=== PATIENT | female | born 1990 | race Caucasian/White ===

== ENCOUNTER → 2021-03-29 15:42 | Observation (INO) ==
[2021-03-29 11:34] LABS: Protein/Creatinine Ratio,Urine 0.11 mg/mg (0.00-0.20)
[2021-03-29 11:45] LABS: Alanine Aminotransferase 22 Units/L (7-52); Aspartate Amino Transferase 16 Units/L (13-39); BUN/Creatinine Ratio 15 (6-26); Blood Urea Nitrogen 9 mg/dL (6-20); Lactate Dehydrogenase 123 Units/L (140-271); Uric Acid 5.6 mg/dL (2.3-7.6); eGFR For African Americans > 60 (> 60); eGFR For Non-African Americans > 60 (> 60)
== END | disposition home or self-care (01) ==
LOC: 1NENULAB
PROVIDERS: ADMIT Registered Nurse; ATTEND Registered Nurse

== ENCOUNTER 2021-05-03 06:46 | Inpatient (IN) ==
[2021-05-03] MEDS ORDERED: miSOPROStoL 25 MCG TABLET PO PRN (06:48)
[2021-05-03] MEDS ORDERED: *HR* Nalbuphine 10 MG/ML AMPUL IV PRN (06:49)
[2021-05-03] MEDS ORDERED: Ondansetron 4 MG/2 ML VIAL IVP PRN (06:49)
[2021-05-03] MEDS ORDERED: Lidocaine 1% 20 ML MDV INFILT PRN (06:49)
[2021-05-03] MEDS ORDERED: Famotidine 20 MG/2 ML VIAL IVP PRN (06:49)
[2021-05-03] MEDS ORDERED: Metoclopramide 10 MG/2 ML VIAL IVP PRN (06:49)
[2021-05-03] MEDS ORDERED: Naloxone 0.4 MG/ML INJ IVP PRN (06:49)
[2021-05-03] MEDS ORDERED: Ringers Solution, Lactated 1,000 ML IVC SCH (07:00)
[2021-05-03 08:35] LABS: Basophils % 0.2 %; Eosinophils % 0.5 %; Hematocrit 29.4 % (35.3-44.9); Hemoglobin 9.9 g/dL (11.5-15.4); Immature Granulocytes % 0.6 % (0-4); Lymphocytes # 1.9 K/mcL (0.6-4.6); Lymphocytes % 22.3 %; Mean Corpuscular HGB Conc 33.7 g/dL (31.6-35.5); Mean Corpuscular Hemoglobin 31.4 pg (28.0-33.3); Mean Corpuscular Volume 93.3 fL (83.0-100.0); Mean Platelet Volume 9.2 fL (9.4-12.4); Monocytes # 0.6 K/mcL (0.0-1.3); Neutrophils # 5.8 K/mcL (1.6-8.9); Platelet Count 245 K/mcL (140-400); Red Blood Count 3.15 M/mcL (3.82-4.97); Red Cell Distribution Width 14.6 % (11.5-14.5); Segmented Neutrophils % 69.4 %; White Blood Count 8.4 K/mcL (4.3-11.1)
[2021-05-03 09:06] LABS: Influenza A PCR Negative (Negative); Influenza B PCR Negative (Negative); Resp. Syncytial Virus PCR Negative (Negative)
[2021-05-03 09:07] LABS: SARS-CoV-2 by PCR (In House) Negative (Negative)
[2021-05-03 09:19] LABS: Alanine Aminotransferase 7 Units/L (7-52); Aspartate Amino Transferase 10 Units/L (13-39); BUN/Creatinine Ratio 16 (6-26); Blood Urea Nitrogen 9 mg/dL (6-20); Lactate Dehydrogenase 121 Units/L (140-271); Uric Acid 5.8 mg/dL (2.3-7.6); eGFR For African Americans > 60 (> 60); eGFR For Non-African Americans > 60 (> 60)
[2021-05-03] MEDS ORDERED: EPHEDrine 50 MG/ML VIAL IVP PRN (10:37)
[2021-05-03] MEDS ORDERED: Ropivacaine/PF 0.2% 20 ML VIAL EP ONE (10:37)
[2021-05-03] MEDS ORDERED: *HR* FentaNYL (PF) 100 MCG/2 ML VIAL EP ONE (10:37)
[2021-05-03] MEDS ORDERED: Epidural Premix (fent/bupiv) 110 ML EP SCH (10:45)
[2021-05-03 10:56] LABS: Creatinine,Urine 172 mg/dL; Protein/Creatinine Ratio,Urine 0.12 mg/mg (0.00-0.20)
[2021-05-03 11:00] LABS: Amphetamine Screen,Urine Negative ng/mL (Cutoff=1000); Barbiturate Screen,Urine Negative ng/mL (Cutoff=200); Benzodiazepines Screen,Urine Negative ng/mL (Cutoff=200); Cannabinoid Screen,Urine Negative ng/mL (Cutoff = 50); Cocaine Screen,Urine Negative ng/mL (Cutoff= 300); Opiate Screen,Urine Negative ng/mL (Cutoff=300); Phencyclidine Screen,Urine Negative ng/mL (Cutoff=25)
[2021-05-03] MEDS ORDERED: Oxytocin 20 units/ LR 1000 mL 20 UNIT/1,000 ML BAG IVC SCH (16:45)
[2021-05-03] MEDS ORDERED: Acetaminophen 325 MG TABLET PO ONE (19:34)
[2021-05-04] MEDS ORDERED: Oxytocin 20 units/ LR 1000 mL 20 UNIT/1,000 ML BAG IVC SCH (01:18)
[2021-05-04] MEDS ORDERED: Rho Immune Globulin 1,500 UNIT SYRINGE IM PRN (01:18)
[2021-05-04] MEDS ORDERED: Lanolin 7 G OINT...G. TP PRN (01:18)
[2021-05-04] MEDS ORDERED: Benzocaine/Menthol 56 GM AEROSOL SPRAY TP PRN (01:18)
[2021-05-04] MEDS ORDERED: Ondansetron ODT 4 MG TAB.RAPDIS SL PRN (01:18)
[2021-05-04] MEDS ORDERED: Measles/Mumps/Rubella Vacc 0.5 ML VIAL SQ PRN (01:18)
[2021-05-04] MEDS: Acetaminophen 325 MG TABLET PO SCH ×3 (02:00→22:42)
[2021-05-04] MEDS: Ibuprofen 600 MG TABLET PO SCH ×3 (02:00→22:42)
[2021-05-04 06:32] LABS: Basophils % 0.2 %; Eosinophils % 0.1 %; Hematocrit 32.5 % (35.3-44.9); Immature Granulocytes % 0.6 % (0-4); Lymphocytes # 2.1 K/mcL (0.6-4.6); Lymphocytes % 13.1 %; Mean Corpuscular HGB Conc 33.8 g/dL (31.6-35.5); Mean Corpuscular Volume 94.5 fL (83.0-100.0); Mean Platelet Volume 9.3 fL (9.4-12.4); Monocytes % 6.6 %; Platelet Count 265 K/mcL (140-400); Red Blood Count 3.44 M/mcL (3.82-4.97); Red Cell Distribution Width 14.5 % (11.5-14.5); Segmented Neutrophils % 79.4 %
[2021-05-04 06:40] LABS: Neutrophils # 12.5 K/mcL (1.6-8.9); White Blood Count 15.7 K/mcL (4.3-11.1)
[2021-05-04] MEDS: Prenatal Vit/FA 1 EACH TABLET PO SCH (09:51)
[2021-05-05] MEDS: Ibuprofen 600 MG TABLET PO SCH ×3 (04:09→16:38)
[2021-05-05] MEDS: Acetaminophen 325 MG TABLET PO SCH ×3 (04:09→16:38)
[2021-05-05] MEDS ORDERED: NIFEdipine XL (24 HR) 30 MG TAB.ER.24 PO SCH (09:00)
[2021-05-05] MEDS: Prenatal Vit/FA 1 EACH TABLET PO SCH (09:59)
[2021-05-05 14:10] VITALS: O2SAT 100
[2021-05-05 15:59] VITALS: BP 104/62; PULSE 81; TEMP 98.7
== END 2021-05-05 17:12 | disposition home or self-care (01) | DRG 807 ==
LOC: 1NENULAB 06:46 → 1NENUOBS 05-04 01:06
PROVIDERS: ADMIT Student in an Organized Health Care Education/Training Program; ATTEND Student in an Organized Health Care Education/Training Program